=== PATIENT | female | born 1980 | race African-American/Black ===

== ENCOUNTER 2019-06-09 07:19 | Emergency (ER) | payer SELFPAY ==
[~2019-06-09] VITALS: Ht 160 cm; Wt 59.0 kg
[~2019-06-09 07:19] MED LIST: AUGMENTIN 875-1 EACH PO; AZITHROMYCIN250 MG PO; DEPAKENE250 MG PO; DIAZEPAM10 MG PO; HYDROCHLOROTH12.5 MG PO; HYDROCODON-ACE1 EA14 PO; IBUPROFEN800 MG PO; KEPPRA250 MG PO; NICOTINE PATCH1 EAC1 TD; PREDNISONE20 MG PO; PRENATAL FORMU1 EACH PO; STOOL SOFTENER1 EAC2 PO
== END 2019-06-09 09:52 | disposition home or self-care (01) ==
LOC: ED 07:19
DX: S90.212A Contusion of left great toe with damage to nail, initial encounter (principal); S60.00XA Contusion of unspecified finger without damage to nail, initial encounter; F17.210 Nicotine dependence, cigarettes, uncomplicated; W22.8XXA Striking against or struck by other objects, initial encounter
CPT/HCPCS: 70450; 73130; 73630; 84703; 99284-25

== ENCOUNTER 2021-05-28 21:03 | Emergency (ER) | payer OTHER ==
[~2021-05-28] VITALS: Ht 160 cm; Wt 73.0 kg
[2021-05-29] MEDS ORDERED: CEPHALEXIN500 MG PO (01:39)
[2021-05-29] MEDS ORDERED: PYRIDIUM200 MG PO (01:39)
== END 2021-05-29 02:00 | disposition home or self-care (01) ==
LOC: ED 21:03
DX: N39.0 Urinary tract infection, site not specified (principal); F17.200 Nicotine dependence, unspecified, uncomplicated
CPT/HCPCS: 74176; 81001; 84703; 99284-25

== ENCOUNTER 2022-02-19 23:05 | Emergency (ER) | payer OTHER ==
[~2022-02-19] VITALS: Ht 160 cm; Wt 72.0 kg
[~2022-02-19 23:05] MED LIST changes: +CEPHALEXIN500 MG PO; +PYRIDIUM200 MG PO
== END 2022-02-20 03:43 | disposition home or self-care (01) ==
LOC: ED 23:05
DX: T14.8XXA Other injury of unspecified body region, initial encounter (principal); M54.2 Cervicalgia; R10.812 Left upper quadrant abdominal tenderness; M25.511 Pain in right shoulder; R20.0 Anesthesia of skin; F17.200 Nicotine dependence, unspecified, uncomplicated; V48.1XXA Car passenger injured in noncollision transport accident in nontraffic accident, initial encounter; Y92.410 Unspecified street and highway as the place of occurrence of the external cause
CPT/HCPCS: 70450; 71260; 72125; 73130; 74177; 84703; 99284-25; Q9967

== ENCOUNTER 2022-09-27 20:47 | Emergency (ER) | payer OTHER ==
[~2022-09-27] VITALS: Ht 160 cm; Wt 71.0 kg
== END 2022-09-27 22:02 | disposition home or self-care (01) ==
LOC: ED 20:47
DX: R03.0 Elevated blood-pressure reading, without diagnosis of hypertension (principal); F17.200 Nicotine dependence, unspecified, uncomplicated
CPT/HCPCS: 99283

== ENCOUNTER 2022-10-13 16:06 | Emergency (ER) | payer OTHER ==
[~2022-10-13] VITALS: Ht 160 cm; Wt 70.9 kg
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
[2022-10-13] MEDS ORDERED: LISINOPRIL10 MG PO (18:52)
[2022-10-13] MEDS ORDERED: REGLAN10 MG PO (18:53)
== END 2022-10-13 19:08 | disposition home or self-care (01) ==
LOC: ED 16:06
DX: I10 Essential (primary) hypertension (principal); G43.909 Migraine, unspecified, not intractable, without status migrainosus; F17.200 Nicotine dependence, unspecified, uncomplicated
CPT/HCPCS: 99283; A9270